=== PATIENT | female | born 1990 | race Caucasian/White ===

== ENCOUNTER 2017-06-21 15:40 | Emergency (ER) | payer OTHER ==
[2017-06-21 15:55] VITALS: PULSE 71; RESP 18; TEMP 98.1; O2SAT 100
[2017-06-21] MEDS ORDERED: DiphenhydrAMINE 50 mg/ml Inj IVP STA (16:28)
--- NOTE | 2017-06-21 16:45 | C.PDOC ---
History Of Present Illness 27 yr old female presents to the ER with complaints of a headache for the past few months. Patient is accompanied by a family member who is also complaining of a headache. Patient states the headache worsened last night. Denies fever, vision changes, chest pain, SOB, nausea, vomiting, weakness or numbness. Time Seen by Provider: 06/21/17 16:14 Chief Complaint (Nursing): Headache History Per: Patient History/Exam Limitations: no limitations Onset/Duration Of Symptoms: Persistent (Past few months ) Past Medical History Reviewed: Historical Data, Nursing Documentation, Vital Signs Vital Signs: Last Vital Signs Temp 98.1 F 06/21/17 15:50 Pulse 71 06/21/17 15:50 Resp 18 06/21/17 15:50 BP 106/78 06/21/17 15:50 Pulse Ox 100 06/21/17 16:49 Family History: States: No Known Family Hx - Social History Hx Alcohol Use: No Hx Substance Use: No - Immunization History Hx Tetanus Toxoid Vaccination: No Hx Influenza Vaccination: No Hx Pneumococcal Vaccination: No Review Of Systems Except As Marked, All Systems Reviewed And Found Negative. Constitutional: Negative for: Fever Eyes: Negative for: Vision Change Cardiovascular: Negative for: Chest Pain Respiratory: Negative for: Shortness of Breath Gastrointestinal: Negative for: Nausea, Vomiting Neurological: Positive for: Headache. Negative for: Weakness, Numbness Physical Exam - Physical Exam Appears: Well, Non-toxic, No Acute Distress Skin: Normal Color, Warm, Dry, No Rash Head: Atraumatic, Normacephalic Eye(s): bilateral: Normal Inspection, PERRL, EOMI Nose: Normal Oral Mucosa: Moist Neck: Normal, Normal ROM, Supple Chest: Symmetrical, No Tenderness Cardiovascular: Rhythm Regular, No Murmur Respiratory: Normal Breath Sounds, No Rales, No Rhonchi, No Stridor, No Wheezing Extremity: Normal ROM, No Swelling Neurological/Psych: Oriented x3, Normal Speech, Normal Motor ED Course And Treatment - Laboratory Results Result Diagrams: 06/21/17 16:48 06/21/17 16:48 O2 Sat by Pulse Oximetry: 100 (RA ) Pulse Ox Interpretation: Normal Medical Decision Making Medical Decision Making: PLAN: * Carboxyhemoglobin * VBG * CBC * CMP * HCG * Urinalysis * Benadryl IVP * Reglan IVP pt in family in er with whalen. co level normal . labs unremarkble neuro intact, pain improve.d asking for d/c. no thunderclap features. advise outpt f/u Disposition - Disposition Referrals: [facility] [Outside] [facility] [Outside] Héctor Monte MD [Staff Provider] - Disposition: HOME/ ROUTINE Disposition Time: 17:49 Condition: STABLE Additional Instructions: please follow with your doctor. return to er with worsening symptoms or concerns. please see specialsit. Prescriptions: Acetaminophen/Butalbital/Caf [Fioricet] 1 tab PO Q8 PRN #20 tab PRN Reason: Headache Instructions: Acute Headache (ED) Forms: [employer] (Swedish) Print Language: FRISIAN - Clinical Impression Clinical Impression: Headache - Scribe Statement The provider has reviewed the documentation as recorded by the Rushibe Maira Manzo Provider Attestation: All medical record entries made by the Scribe were at my direction and personally dictated by me. I have reviewed the chart and agree that the record accurately reflects my personal performance of the history, physical exam, medical decision making, and the department course for this patient. I have also personally directed, reviewed, and agree with the discharge instructions and disposition.
[2017-06-21 16:55] LABS: BASO # 0.1 K/uL (0.0-0.2); BASO % 0.6 % (0.0-2.0); EOS # 0.2 K/uL (0.0-0.7); EOS % 2.4 % (0.0-4.0); HEMATOCRIT 42.2 % (34.0-47.0); LYMPH # 2.7 K/uL (1.0-4.3); LYMPH % 32.3 % (20.0-40.0); MEAN CELL VOLUME 90.7 fL (81.0-99.0); MEAN CORPUSCULAR HEMOGLOBIN 31.1 pg (27.0-31.0); MEAN CORPUSCULAR HGB CONC 34.3 g/dL (33.0-37.0); MEAN PLATELET VOLUME 7.1 fL (7.2-11.7); MONO # 0.6 K/uL (0.0-0.8); MONO % 6.7 % (0.0-10.0); RED CELL DISTRIBUTION WIDTH 13.5 % (11.5-14.5); WHITE BLOOD COUNT 8.3 K/uL (4.8-10.8)
[2017-06-21 17:03] LABS: CHLORIDE 101 mmol/L (98-107); POTASSIUM 3.9 mmol/L (3.6-5.2); SODIUM 141 mmol/L (132-148)
[2017-06-21 17:05] LABS: GFR AFRICAN-AMERICAN > 60
[2017-06-21 17:06] LABS: ALB/GLOB RATIO 1.4 (1.0-2.1); ALKALINE PHOSPHATASE 84 U/L (38-126); ALT/SGPT 33 U/L (9-52); AST/SGOT 24 U/L (14-36); BILIRUBIN,TOTAL 0.8 mg/dL (0.2-1.3); BLOOD UREA NITROGEN 12 mg/dL (7-17); CALCIUM 9.1 mg/dl (8.6-10.4); CARBON DIOXIDE 26 mmol/L (22-30); GLUCOSE,RANDOM 88 mg/dL (65-105); TOTAL PROTEIN 7.4 g/dL (6.3-8.3)
[2017-06-21 17:07] LABS: RBC URINE 8 /hpf (0-3); URINE BILIRUBIN NEGATIVE (NEGATIVE); URINE BLOOD NEGATIVE (NEGATIVE); URINE COLOR Yellow (YELLOW); URINE GLUCOSE (UA) NORMAL (Normal); URINE KETONE NEGATIVE (NEGATIVE); URINE LEUKOCYTE ESTERASE NEG Leu/uL (Negative); URINE PROTEIN NEGATIVE (NEGATIVE); URINE UROBILINOGEN NORMAL mg/dL (0.2-1.0); WBC URINE < 1 /hpf (0-5)
[2017-06-21] MEDS ORDERED: DiphenhydrAMINE 50 mg/ml Inj ONE (17:18)
[2017-06-21 17:27] LABS: BLOOD GAS HEMOGLOBIN 12.7 g/dL (11.7-17.4); CARBOXYHEMOGLOBIN 1.2 % (0.5-1.5); DRAW SITE VENOUS; HHB 49.1 % (0.0-5.0); METHEMOGLOBIN 1.3 % (0.0-3.0); VENOUS BLOOD GAS BASE EXCESS -0.6 mmol/L (0.0-2.0); VENOUS BLOOD GAS PCO2 43 mmHg (40-60); VENOUS BLOOD HGB O2 SAT 48.3 % (95.0-98.0); VENOUS BLOOD PH 7.37 (7.32-7.43)
[2017-06-21 18:13] VITALS: BP 100/70
== END 2017-06-21 18:06 | disposition home or self-care (01) ==
LOC: C.ER 15:40 → MERGE 15:40 → C.ER 18:06
DX: R51 Headache (principal)
CPT/HCPCS: 80053; 81001; 82803; 84703; 85025; 85610; 85730; 96374; 96375; 99284; J1200; J2765

== ENCOUNTER 2017-10-24 03:01 | Emergency (ER) | payer OTHER ==
[2017-10-24 03:01] VITALS: BMI 27.6
[2017-10-24 03:18] VITALS: O2SAT 99
--- NOTE | 2017-10-24 04:37 | C.PDOC ---
History Of Present Illness 27 year old female with no significant PMHx presents to the ED with complaints of mid-chest pain beginning just prior to arrival. Patient reports pain is worsened with breathing and movement. Patient denies palpitations, URI symptoms , or shortness of breath. Pt has no OCP use, no recent travel or recent immobilization state Time Seen by Provider: 10/24/17 03:42 Chief Complaint (Nursing): Chest Pain History Per: Patient History/Exam Limitations: no limitations Onset/Duration Of Symptoms: Hrs Current Symptoms Are (Timing): Still Present Associated Symptoms: denies: Nausea, Dyspnea, Diaphoresis, Syncope Modifying Factors: None Exacerbating Factors: Movement, Deep Breathing Alleviating Factors: None Recent travel outside of the [place]: No Past Medical History Reviewed: Historical Data, Nursing Documentation, Vital Signs Vital Signs: Last Vital Signs Temp 98.7 F 10/24/17 06:17 Pulse 84 10/24/17 06:17 Resp 20 10/24/17 06:17 BP 110/67 10/24/17 06:17 Pulse Ox 99 10/24/17 06:17 - Medical History PMH: Sexually Transmitted Disease (chlamydia 09/12) - [facility] Procedures MANUAL ASSIST DELIV NEC (03/21/15) Family History: States: Unknown Family Hx - Social History Hx Alcohol Use: No Hx Substance Use: No - Immunization History Hx Tetanus Toxoid Vaccination: No Hx Influenza Vaccination: No Hx Pneumococcal Vaccination: No Review Of Systems Constitutional: Negative for: Fever, Chills Cardiovascular: Positive for: Chest Pain. Negative for: Palpitations Respiratory: Negative for: Cough, Shortness of Breath Gastrointestinal: Negative for: Nausea, Vomiting, Abdominal Pain Neurological: Negative for: Weakness, Numbness Physical Exam - Physical Exam Appears: Non-toxic, No Acute Distress Skin: Warm, Dry, No Rash Head: Atraumatic, Normacephalic, No Tenderness Eye(s): bilateral: Normal Inspection, PERRL, EOMI Oral Mucosa: Moist Neck: Supple Chest: Symmetrical, No Deformity, Tenderness (reproducible sternal chest tenderness with palpation) Cardiovascular: Rhythm Regular, No Murmur Respiratory: No Rales, No Rhonchi, No Wheezing, Other (clear to auscultation bilaterally ) Gastrointestinal/Abdominal: Soft, No Tenderness, No Distention, No Guarding, No Rebound Extremity: Normal ROM, No Tenderness Neurological/Psych: Oriented x3 ED Course And Treatment ECG: Interpreted By Me, Viewed By Me ECG Rhythm: Sinus Rhythm (at 86) Interpretation Of ECG: No ST-T wave changes Rate From EC O2 Sat by Pulse Oximetry: 99 (RA) Pulse Ox Interpretation: Normal - Radiology CXR: Interpreted by Me, Viewed By Me CXR Interpretation: Yes: No Acute Disease Progress Note: CXR was ordered and patient was given Motrin. Reevaluation Time: 05:29 Reassessment Condition: Improved (Pt reports complete pain relief and would like to go home. VSS. Return precautions d/w pt) Disposition - Disposition Referrals: Clinic,Med Surg [Primary Care Provider] - Disposition: HOME/ ROUTINE Disposition Time: 05:30 Condition: STABLE Additional Instructions: Sigue con el doctor en clinica Return to ER if worse Prescriptions: Ibuprofen [Motrin] 600 mg PO Q6H #20 tab Instructions: Chest Wall Pain (ED) Forms: [employer] (Burundian) Print Language: ITALIAN - Clinical Impression Clinical Impression: Chest wall pain - PA / DRUM STRAIGHTENER / Resident Statement MD/DO has reviewed & agrees with the documentation as recorded. - Scribe Statement The provider has reviewed the documentation as recorded by the Scribe Krystyna Guillen All medical record entries made by the Rushibkhalif were at my direction and personally dictated by me. I have reviewed the chart and agree that the record accurately reflects my personal performance of the history, physical exam, medical decision making, and the department course for this patient. I have also personally directed, reviewed, and agree with the discharge instructions and disposition.
[2017-10-24 04:44] VITALS: PULSE 84
[2017-10-24 06:18] VITALS: BP 110/67; RESP 20; TEMP 98.7
== END 2017-10-24 06:18 | disposition home or self-care (01) ==
LOC: SUPCPDRO 03:01 → C.ER 03:01
DX: R07.89 Other chest pain (principal)

== ENCOUNTER 2017-10-27 13:56 | Emergency (ER) | payer OTHER ==
[2017-10-27 13:56] VITALS: BMI 27.6
[2017-10-27 14:24] VITALS: RESP 16; TEMP 98.1; O2SAT 100
--- NOTE | 2017-10-27 14:45 | C.PDOC ---
History Of Present Illness 27 year old female with no significant PMHx presents to the ED with complaints of mid-chest pain intermittent for apst 4 days. Today, developed some dyspnea at home. Patient admits, was seen here in ED 4 days ago ' was told if no improvement to come back". Patient reports, chest pain is localized over left anterior chest wall, reproducible, worsened with breathing and movement. Patient denies fever, chills, headache, dizziness, neck pain, palpitations, diaphoresis, cough, abd. pain, V/D, back pain, UTI sx, denies previous hx of card. ds, denies B/L lower legs pain, denies recent recent travel or immobilization , control pulls use. Ambulate to ED for evaluation, not in any apparent distress. Time Seen by Provider: 10/27/17 14:25 Chief Complaint (Nursing): Medical Clearance History Per: Patient Past Medical History Reviewed: Historical Data, Nursing Documentation, Vital Signs Vital Signs: Last Vital Signs Temp 98.1 F 10/27/17 14:21 Pulse 75 10/27/17 14:21 Resp 16 10/27/17 15:21 BP 103/76 10/27/17 14:21 Pulse Ox 100 10/27/17 15:04 - Medical History PMH: No Chronic Diseases, Sexually Transmitted Disease (chlamydia 09/12) Surgical History: No Surg Hx - [facility] Procedures MANUAL ASSIST DELIV NEC (03/21/15) Family History: States: No Known Family Hx - Social History Hx Tobacco Use: No Hx Alcohol Use: No Hx Substance Use: No - Immunization History Hx Tetanus Toxoid Vaccination: No Hx Influenza Vaccination: No Hx Pneumococcal Vaccination: No Review Of Systems Except As Marked, All Systems Reviewed And Found Negative. Constitutional: Negative for: Fever, Chills Eyes: Negative for: Vision Change ENT: Negative for: Ear Discharge, Nose Pain, Nose Discharge, Throat Pain Cardiovascular: Positive for: Chest Pain. Negative for: Palpitations, Orthopnea , Paroxysmal Noc. Dyspnea Respiratory: Positive for: Shortness of Breath. Negative for: Cough, SOB with Excertion, Sputum, Wheezing Gastrointestinal: Negative for: Nausea, Vomiting, Abdominal Pain, Diarrhea Genitourinary: Negative for: Dysuria, Frequency Musculoskeletal: Negative for: Neck Pain, Back Pain Neurological: Negative for: Weakness, Numbness, Altered Mental Status, Headache , Dizziness Physical Exam - Physical Exam Appears: Well, Non-toxic, No Acute Distress Skin: Normal Color, Warm, Dry, No Rash Head: Normacephalic Eye(s): bilateral: PERRL Nose: No Discharge Oral Mucosa: Moist, No Drooling Throat: No Erythema, No Drooling Neck: Trachea Midline, Supple Chest: Tenderness (mild over anterior aspec left chest wall, (-) palpable deformity, no skin changes.) Cardiovascular: Rhythm Regular, No Murmur, No JVD Respiratory: No Decreased Breath Sounds, No Accessory Muscle Use, No Stridor, No Wheezing Gastrointestinal/Abdominal: Soft, No Tenderness, No Distention, No Guarding Back: No CVA Tenderness Extremity: Normal ROM, No Deformity, No Swelling Neurological/Psych: Oriented x3, Normal Speech ED Course And Treatment ECG: Interpreted By Me, Viewed By Me ECG Interpretation: Normal, No Changes From Prior Interpretation Of ECG: SINUS JOVANNY @64/MIN, RAD, NO ACUTE ST-T CHANGE. O2 Sat by Pulse Oximetry: 100 Pulse Ox Interpretation: Normal Progress Note: On re-eval, pt is afebrile, hemodynamicaly stable. non-toxic. Ambulatory in ED with stable gait, no dyspnea noted on walking in ED. PulseOx 100% RA. ENT: exam c/w acute pharyngitis. uvula midline, no edmea. neck: Supple, (-) JVD, (-) carotid bruits B/L. Lungs: CTA B/L, BS equal B/L. CVS: (+ )S1S2, reg. Abd: benign. Neuorlogicaly intact. EKG repeated and compare to previous study- no acute changes. D-Dimer (-). Pt has clinical findings c/w left sided CP, dyspnea. Pt advised on course of ds. refl. to F/U with PMD, Card in 2-3 days for re-eval. return to ED if any worsening or new changes. Disposition Counseled Patient/Family Regarding: Studies Performed, Diagnosis, Need For Followup, Rx Given - Disposition Referrals: [facility] [Outside] Disposition: HOME/ ROUTINE Disposition Time: 15:55 Condition: STABLE Additional Instructions: FOLLOW UP WITHY PMD AND CARDIOLOGY IN 2-3 DAYS FOR RE-EVALUATION. RETURN OR ED IF ANY WORSENING OR NEW CHANGES. Prescriptions: Ibuprofen [Motrin] 1 tab PO TID PRN #20 tab PRN Reason: Pain Instructions: Chest Pain (ED), Dyspnea (ED) Forms: [facility] [employer] (Swedish) Print Language: TAMAZIGHT - Clinical Impression Clinical Impression: Dyspnea, Chest pain
[2017-10-27 15:40] LABS: RBC URINE 1 /hpf (0-3); URINE BILIRUBIN NEGATIVE (NEGATIVE); URINE BLOOD NEGATIVE (NEGATIVE); URINE COLOR Straw (YELLOW); URINE GLUCOSE (UA) NORMAL (Normal); URINE KETONE NEGATIVE (NEGATIVE); URINE LEUKOCYTE ESTERASE NEG Leu/uL (Negative); URINE PROTEIN NEGATIVE (NEGATIVE); URINE UROBILINOGEN NORMAL mg/dL (0.2-1.0); WBC URINE 1 /hpf (0-5)
[2017-10-27 16:02] VITALS: BP 100/66; PULSE 73
--- NOTE | 2017-10-30 17:53 | CARD ---
APPROVED REPORT EKG Measurement Heart [id number] <Conclusion> Normal sinus rhythm Rightward axis Borderline ECG
== END 2017-10-27 16:09 | disposition home or self-care (01) ==
LOC: C.ER 13:56
DX: R07.9 Chest pain, unspecified (principal); R06.00 Dyspnea, unspecified

== ENCOUNTER 2018-06-21 23:00 | Emergency (ER) | payer SELFPAY ==
[2018-06-21 23:00] VITALS: BMI 27.3
[2018-06-21] MEDS ORDERED: Sodium Chloride 0.9% 1,000 ML IV ONE (23:21)
--- NOTE | 2018-06-21 23:27 | C.PDOC ---
History Of Present Illness <Moody Lemon - Last Filed: 06/21/18 23:27> <Luis Gallardo R - Last Filed: 06/22/18 05:36> 28 year old female presents to the ER with a complaint of lower abdominal pain since 13:00 today. Denies fever, chills, nausea, or vomiting. (Moody Lemon) History Per: Patient History/Exam Limitations: no limitations Onset/Duration Of Symptoms: Hrs Current Symptoms Are (Timing): Still Present Location Of Pain/Discomfort: RLQ Quality Of Discomfort: Unable To Describe Associated Symptoms: denies: Fever, Chills, Nausea, Vomiting Exacerbating Factors: None Alleviating Factors: None Recent travel outside of the [place]: No Abnormal Vaginal Bleeding: No <Moody Lemon - Last Filed: 06/21/18 23:27> <Luis Gallardo R - Last Filed: 06/22/18 05:36> Time Seen by Provider: 06/21/18 23:13 Chief Complaint (Nursing): Abdominal Pain Past Medical History Reviewed: Historical Data, Nursing Documentation, Vital Signs - Medical History PMH: Sexually Transmitted Disease (chlamydia 09/12) Family History: States: Unknown Family Hx - Social History Hx Tobacco Use: No Hx Alcohol Use: Yes Hx Substance Use: No - Immunization History Hx Tetanus Toxoid Vaccination: No Hx Influenza Vaccination: Yes Hx Pneumococcal Vaccination: No <Moody Lemon - Last Filed: 06/21/18 23:27> Vital Signs: Last Vital Signs Temp 98.7 F 06/22/18 05:07 Pulse 83 06/22/18 05:07 Resp 14 06/22/18 05:07 BP 112/77 06/22/18 05:07 Pulse Ox 100 06/22/18 05:07 - [facility] Procedures MANUAL ASSIST DELIV NEC (03/21/15) Review Of Systems Constitutional: Negative for: Fever, Chills Cardiovascular: Negative for: Chest Pain, Palpitations Respiratory: Negative for: Cough, Shortness of Breath Gastrointestinal: Positive for: Abdominal Pain. Negative for: Nausea, Vomiting Genitourinary: Negative for: Dysuria, Hematuria <Moody Lemon - Last Filed: 06/21/18 23:27> Physical Exam - Physical Exam Appears: Non-toxic Skin: Normal Color, Warm, Dry Head: Atraumatic, Normacephalic Eye(s): bilateral: Normal Inspection Oral Mucosa: Moist Chest: Symmetrical, No Tenderness Cardiovascular: Rhythm Regular Respiratory: Normal Breath Sounds, No Rales, No Rhonchi, No Wheezing Gastrointestinal/Abdominal: Soft, Tenderness (RLQ), No Guarding, No Rebound Back: No CVA Tenderness Neurological/Psych: Oriented x3, Normal Speech <Moody Lemon - Last Filed: 06/21/18 23:27> ED Course And Treatment O2 Sat by Pulse Oximetry: 100 <Moody Lemon - Last Filed: 06/21/18 23:27> - Laboratory Results Result Diagrams: 06/21/18 23:37 06/21/18 23:37 <Luis Gallardo - Last Filed: 06/22/18 05:36> Medical Decision Making <Moody Lemon - Last Filed: 06/21/18 23:27> <Luis Gallardo - Last Filed: 06/22/18 05:36> Medical Decision Making: Blood work and urinalysis ordered. IV fluids and tylenol administered. (Moody Lemon) Disposition <Moody Lemon - Last Filed: 06/21/18 23:27> Counseled Patient/Family Regarding: Diagnosis - Disposition Disposition Time: 05:33 - POA Present On Arrival: None <Luis Gallardo - Last Filed: 06/22/18 05:36> - Disposition Referrals: [facility] [Outside] Disposition: HOME/ ROUTINE Condition: STABLE Prescriptions: Naproxen 375 mg PO Q6 #14 tablet Instructions: Acute Abdomen (Belly Pain), Adult (DC) Forms: [facility] (South Sudanese), Gen Discharge Inst Belgian Print Language: SOUTH SUDANESE - Clinical Impression Clinical Impression: Abdominal pain - Scribe Statement The provider has reviewed the documentation as recorded by the Scribe <Moody Lemon - Last Filed: 06/21/18 23:27> <Luis Gallardo - Last Filed: 06/22/18 05:36> - Scribe Statement Alexandre Rock All medical record entries made by the Scribe were at my direction and personally dictated by me. I have reviewed the chart and agree that the record accurately reflects my personal performance of the history, physical exam, medical decision making, and the department course for this patient. I have also personally directed, reviewed, and agree with the discharge instructions and disposition. (Moody Lemon)
[2018-06-21] MEDS ORDERED: Sodium Chloride 0.9% 1,000 ML ONE (23:28)
[2018-06-21 23:41] LABS: BASO % 0.6 % (0.0-2.0); EOS # 0.2 K/uL (0.0-0.7); HEMOGLOBIN 14.2 g/dL (11.0-16.0); LYMPH # 3.2 K/uL (1.0-4.3); MEAN CELL VOLUME 88.5 fL (81.0-99.0); MEAN CORPUSCULAR HGB CONC 35.1 g/dL (33.0-37.0); MEAN PLATELET VOLUME 7.3 fL (7.2-11.7); MONO # 0.5 K/uL (0.0-0.8); MONO % 6.3 % (0.0-10.0); NEUT # 4.3 K/uL (1.8-7.0); NEUT % 52.1 % (50.0-75.0); RBC 4.59 Mil/uL (3.80-5.20); RED CELL DISTRIBUTION WIDTH 13.3 % (11.5-14.5); WHITE BLOOD COUNT 8.3 K/uL (4.8-10.8)
[2018-06-21 23:43] LABS: SQUAMOUS EPITHIAL 1 /hpf (0-5); URINE BILIRUBIN NEGATIVE (NEGATIVE); URINE BLOOD 1+ (NEGATIVE); URINE CLARITY Clear (Clear); URINE COLOR Yellow (YELLOW); URINE GLUCOSE (UA) NORMAL (Normal); URINE LEUKOCYTE ESTERASE NEG Leu/uL (Negative); URINE PROTEIN NEGATIVE (NEGATIVE); URINE UROBILINOGEN NORMAL mg/dL (0.2-1.0)
[2018-06-21 23:47] LABS: HCG,QUALITATIVE URINE NEGATIVE (NEGATIVE)
[2018-06-21 23:50] LABS: INR 1.1; PROTHROMBIN TIME 11.7 SECONDS (9.7-12.2)
[2018-06-21 23:53] LABS: ALB/GLOB RATIO 1.6 (1.0-2.1); ALBUMIN 4.6 g/dL (3.5-5.0); ALT/SGPT 45 U/L (9-52); AST/SGOT 21 U/L (14-36); BLOOD UREA NITROGEN 9 mg/dL (7-17); CALCIUM 9.4 mg/dl (8.6-10.4); GFR AFRICAN-AMERICAN > 60; GFR NON-AFRICAN AMERICAN > 60; LIPASE 105 U/L (23-300)
[2018-06-22] MEDS ORDERED: Iohexol 240 (50 ml) PO ONE (01:42)
[2018-06-22] MEDS ORDERED: Iohexol 240 (50 ml) ONE (01:47)
[2018-06-22] MEDS ORDERED: Iodixanol 320 MG/ML 100 ML BOTTLE IV ONE (03:13)
[2018-06-22 05:07] VITALS: BP 112/77; PULSE 83; RESP 14; TEMP 98.7; O2SAT 100
--- NOTE | 2018-06-22 09:56 | CT ---
Date of service: 06/22/2018 PROCEDURE: CT Abdomen and Pelvis with contrast HISTORY: Right lower quadrant pain COMPARISON: None. TECHNIQUE: CT scan of the abdomen and pelvis was performed after administration of intravenous contrast. Oral contrast was administered. Coronal and sagittal reformatted images were obtained. Contrast dose: 100 mL Visipaque 240 Radiation dose: Total exam DLP = 313.46 mGy-cm. This CT exam was performed using one or more of the following dose reduction techniques: Automated exposure control, adjustment of the mA and/or kV according to patient size, and/or use of iterative reconstruction technique. FINDINGS: LOWER THORAX: Unremarkable. LIVER: Mild hepatomegaly and diffuse fatty liver. No gross lesion or ductal dilatation. GALLBLADDER AND BILE DUCTS: No calcified gallstones. PANCREAS: Normal in size with homogeneous enhancement. No gross lesion or ductal dilatation. SPLEEN: Normal in size and appearance. ADRENALS: No discrete nodule. KIDNEYS AND URETERS: Normal in size with homogeneous enhancement. No hydronephrosis. No solid mass. VASCULATURE: Unremarkable. No aortic aneurysm. BOWEL: Unremarkable. No obstruction. No gross mural thickening. APPENDIX: Normal appendix. PERITONEUM: No free fluid. No free air. LYMPH NODES: No enlarged lymph nodes. BLADDER: Well distended and normal in appearance. REPRODUCTIVE: The uterus is normal in size. BONES: No acute fracture. Within normal limits for the patient's age. OTHER FINDINGS: There is a small fat containing umbilical hernia. IMPRESSION: No acute abdominal or pelvic abnormality. Mild hepatomegaly and fatty liver. A preliminary report was provided by [facility].
== END 2018-06-22 05:50 | disposition home or self-care (01) ==
LOC: C.ER 23:00
DX: R10.31 Right lower quadrant pain (principal)
CPT/HCPCS: 74177; 80053; 81001; 83690; 84703; 85025; 85610; 85730; 96360; 99285; J7030; Q9966; Q9967